=== PATIENT | female | born 1990 | race Caucasian/White ===

== ENCOUNTER → 2016-09-12 | Outpatient (REF) | payer OTHER ==
[~2016-09-12] MED LIST: ACET50TA PO; IBUP-1114 PO; VITAPRTA PO
== END ==
LOC: M LAB REF 13:40
PROVIDERS: ATTEND Advanced Practice Midwife
DX: Z12.4 Encounter for screening for malignant neoplasm of cervix (principal)

== ENCOUNTER → 2017-01-24 | Outpatient (CLI) | payer OTHER ==
[~2017-01-24] MED LIST changes: +CYTO1TAB PV; +IBUP-1022 PO; +METH0.2T53 PO; +ONDA4TAB6 PO; +OXYC1TAB23 PO
[2017-01-24 14:51] LABS: BASO % 0.1 % (0.0-1.0); EOS # 0.1 K/mm3 (0.0-0.50); EOS % 1.4 % (0.0-3.0); LARGE UNSTAINED CELL # 0.1 K/mm3 (0.0-0.4); LARGE UNSTAINED CELL % 1.6 % (0.0-4.0); LYMPH # 1.7 K/mm3 (1.5-6.5); LYMPH % 33.4 % (24.0-44.0); MEAN CORPUSCULAR HEMOGLOBIN 31.5 pg (27.0-33.0); MEAN CORPUSCULAR HGB CONC 33.6 g/dl (32.0-36.5); MEAN CORPUSCULAR VOLUME 93.7 fl (80.0-96.0); MONO # 0.2 K/mm3 (0.0-0.8); MONO % 4.7 % (0.0-5.0); NEUTROPHILS # 2.8 K/mm3 (1.8-7.7); NEUTROPHILS % 58.9 % (36.0-66.0); PLATELET COUNT, AUTOMATED 230 k/mm3 (150-450); RED CELL DISTRIBUTION WIDTH 12.7 % (11.5-14.5); WHITE BLOOD COUNT 4.8 K/mm3 (4.0-10.0)
[2017-01-25 09:59] LABS: HBsAg Prenatal NEGATIVE (NEGATIVE)
== END ==
LOC: M SMT 09:09
PROVIDERS: ATTEND Advanced Practice Midwife
DX: Z36 Encounter for antenatal screening of mother (principal); Z3A.00 Weeks of gestation of pregnancy not specified

== ENCOUNTER → 2017-02-28 | Day surgery (SDC) | payer OTHER ==
[~2017-02-28] VITALS: Ht 142.2 cm; Wt 57.2 kg
[~2017-02-28] MED LIST changes: +DOXYCYCLINE HYCLATE 100 MG TAB As Ordered ONE; +DOXYCYCLINE HYCLATE 100 MG TAB PO SCH; +DOXYCYCLINE HYCLATE 100 MG in D5W MINI-BAG PLUS 100 ML IV ONE; +DOXYCYCLINE HYCLATE 100 MG/10 ML VIAL As Ordered ONE; +KETOROLAC 60 MG/2 ML VIAL (J1885) As Ordered ONE; +LIDOCAINE 2% INJ 100 MG/5 ML SDV (FOR ANES.) As Ordered ONE; +LR 1,000 ML IV SCH; +MEPERIDINE INJ 25 MG/ML VIAL (J2175) As Ordered ONE; +METHYLERGONOVINE MALEATE 0.2 MG TAB PO SCH; +METHYLERGONOVINE MALEATE 0.2 MG/ML VIAL (J2210) As Ordered ONE; +METOCLOPRAMIDE INJ 10MG/2ML VIAL (J2765) IV PRN; +MIDAZOLAM INJ 2 MG/2 ML VIAL (J2250) As Ordered ONE; +ONDANSETRON 4MG/2ML VIAL (J2405) As Ordered ONE; +ONDANSETRON 4MG/2ML VIAL (J2405) IV PRN; +OXYTOCIN INJ 10 UNITS/ML VIAL (J2590) As Ordered ONE; +PERCOCET 5MG/325MG TAB PO PRN; +PROPOFOL 200 MG/20 ML VIAL As Ordered ONE; +SILVER NITRATE APPLICATOR As Ordered ONE; +dexameTHASONE 4 MG/ML 1ML VIAL (J1100) As Ordered ONE; +fentaNYL 100 MCG/2 ML INJECTION (J3010) IV PRN; +fentaNYL 250 MCG/5 ML INJECTION (J3010) As Ordered ONE
[2017-02-28 16:41] LABS: MEAN CORPUSCULAR HEMOGLOBIN 32.5 pg (27.0-33.0); MEAN CORPUSCULAR HGB CONC 34.9 g/dl (32.0-36.5); RED CELL DISTRIBUTION WIDTH 12.4 % (11.5-14.5); WHITE BLOOD COUNT 8.4 K/mm3 (4.0-10.0)
[2017-02-28] MEDS: MEPERIDINE INJ 25 MG/ML VIAL (J2175) IV PRN ×2 (18:08→18:15)
[2017-02-28 21:09] VITALS: BP 141/63
--- NOTE | 2017-03-02 07:32 | RO ---
DATE OF PROCEDURE: 02/28/2017 PREOPERATIVE DIAGNOSES: Missed /first trimester miscarriage/intrauterine embryonic demise. POSTOPERATIVE DIAGNOSES: Missed /first trimester miscarriage/ intrauterine embryonic demise. PROCEDURE PERFORMED: Suction dilation and curettage (D C). SURGEON: Byron Kwon DO CARTOGRAPHIC DRAFTER: None. FINDINGS: 10-12 week size uterus. Tissue removed grossly consistent with products of conception. ANESTHESIA: General via LMA. SPECIMENS TO PATHOLOGY: Intrauterine tissues/products of conception. ESTIMATED BLOOD LOSS: 600 mL. FLUIDS REPLACED: Approximately 1 liter lactated Ringer's. DRAINS: In-and-out catheter. 25 mL urine output prior to the start of the case. COMPLICATIONS: None. PREOPERATIVE ANTIBIOTICS: Doxycycline 100 mg IV times one. INDICATION: The patient is a 26-year-old G2 now P1-0-1-1. She was 11 weeks and 1 day by her EDC. She had a routine visit today. Unfortunately ultrasound showed no evidence of any cardiac activity. The crown rump length measured approximately 10 weeks in gestation. These findings were discussed with the patient during her appointment. The diagnosis of missed /intrauterine embryonic demise were reviewed. Treatment options were reviewed. The patient elected to undergo surgical management via suction dilation and curettage. PROCEDURE: The patient was counseled and consented on risks, benefits, indications, and alternatives of the procedure. Informed consent was obtained. She was taken to the operating room with an IV running and placed on the operating table in dorsal supine position. General anesthesia was administered and airway secured without any difficulty. She was placed in low lithotomy position. She was prepared and draped in normal sterile fashion. A time-out was performed per protocol. The bladder was drained with a sterile in-and-out catheter. Sterile speculum was placed into the vagina with good visualization of the cervix. The cervix was grasped at the anterior lip with a single-tooth tenaculum and downward traction was applied. The cervix was then sequentially dilated with Mckenzie dilators. The uterus sounded to approximately 10 cm. The size 9 Vacurette was placed transcervically into the intrauterine cavity and suction was applied. Tissue that was evacuated was grossly consistent with products of conception. Initially the patient had extremely brisk bleeding but in keeping the suction device in the intrauterine cavity, bleeding eventually decreased over the span of approximately 2-3 minutes. Upon removal of the Vacurette, minimal bleeding from the os was noted. Additional passes of the Vacurette were performed, and each pass with a small amount of tissue and blood return. Once the Vacurette was removed, minimal bleeding from the os was noted. Given the amount of brisk bleeding initially noted, the decision was made to give Methergine 0.2 mg IM to assist with hemostasis. She was also given 20 units of Pitocin in her IV fluids. The Vacurette was placed into the intrauterine cavity for an additional pass with minimal blood and tissue return, indicating complete evacuation of the tissue/products of conception. Upon removal of the Vacurette, minimal bleeding from the cervical os was noted. At this point, I decided to not proceed with the sharp curettage in an effort to not disrupt any raw vessels given the fact that I was confident that the products of conception had been completely removed. The patient was observed for a short period of time. Minimal bleeding from the cervical os was noted. Even with fundal pressure and bimanual massage, minimal bleeding was noted. The single-tooth tenaculum and then removed. The tenaculum sites were cauterized with silver nitrate. Sponge, lap, needle and instrument counts were correct. The patient tolerated the entire procedure well. She was transferred to the postanesthesia care unit in good and stable condition. Minimal vaginal bleeding was noted. LEIGHA
== END | disposition home or self-care (01) ==
LOC: M SDC 14:25
PROVIDERS: ATTEND Obstetrics & Gynecology
DX: O02.1 Missed abortion (principal)
CPT/HCPCS: 36415; 59820; 85027; 86850; 86900; 86901; 88305; J1100; J1885; J2175; J2210; J2250; J2405; J2590; J3010

== ENCOUNTER → 2017-03-15 | Outpatient (CLI) | payer OTHER ==
[~2017-03-15] MED LIST changes: -DOXYCYCLINE HYCLATE 100 MG TAB As Ordered ONE; -DOXYCYCLINE HYCLATE 100 MG TAB PO SCH; -DOXYCYCLINE HYCLATE 100 MG in D5W MINI-BAG PLUS 100 ML IV ONE; -DOXYCYCLINE HYCLATE 100 MG/10 ML VIAL As Ordered ONE; -KETOROLAC 60 MG/2 ML VIAL (J1885) As Ordered ONE; -LIDOCAINE 2% INJ 100 MG/5 ML SDV (FOR ANES.) As Ordered ONE; -LR 1,000 ML IV SCH; -MEPERIDINE INJ 25 MG/ML VIAL (J2175) As Ordered ONE; -METHYLERGONOVINE MALEATE 0.2 MG TAB PO SCH; -METHYLERGONOVINE MALEATE 0.2 MG/ML VIAL (J2210) As Ordered ONE; -METOCLOPRAMIDE INJ 10MG/2ML VIAL (J2765) IV PRN; -MIDAZOLAM INJ 2 MG/2 ML VIAL (J2250) As Ordered ONE; -ONDANSETRON 4MG/2ML VIAL (J2405) As Ordered ONE; -ONDANSETRON 4MG/2ML VIAL (J2405) IV PRN; -OXYTOCIN INJ 10 UNITS/ML VIAL (J2590) As Ordered ONE; -PERCOCET 5MG/325MG TAB PO PRN; -PROPOFOL 200 MG/20 ML VIAL As Ordered ONE; -SILVER NITRATE APPLICATOR As Ordered ONE; -dexameTHASONE 4 MG/ML 1ML VIAL (J1100) As Ordered ONE; -fentaNYL 100 MCG/2 ML INJECTION (J3010) IV PRN; -fentaNYL 250 MCG/5 ML INJECTION (J3010) As Ordered ONE
[2017-03-15 13:28] LABS: MEAN CORPUSCULAR HEMOGLOBIN 31.6 pg (27.0-33.0); MEAN CORPUSCULAR HGB CONC 33.3 g/dl (32.0-36.5); MEAN CORPUSCULAR VOLUME 94.8 fl (80.0-96.0); RED CELL DISTRIBUTION WIDTH 12.4 % (11.5-14.5); WHITE BLOOD COUNT 4.4 K/mm3 (4.0-10.0)
== END ==
LOC: M SMT 11:05
PROVIDERS: ATTEND Obstetrics & Gynecology
DX: O02.1 Missed abortion (principal)

== ENCOUNTER → 2017-04-13 | Outpatient (CLI) | payer OTHER | LOC: M SMT 10:52 | PROVIDERS: ATTEND Obstetrics & Gynecology | DX: O02.1 Missed abortion (principal); Z3A.00 Weeks of gestation of pregnancy not specified ==

== ENCOUNTER → 2017-08-29 | Outpatient (CLI) | payer OTHER ==
[2017-08-29 13:29] LABS: BASO % 0.6 % (0.0-1.0); EOS % 0.6 % (0.0-3.0); HEMATOCRIT 35.6 % (36.0-47.0); HEMOGLOBIN 12.1 g/dl (12.0-16.0); IMMATURE GRANULOCYTE % 0.2 % (0-0); MEAN CORPUSCULAR HEMOGLOBIN 30.6 pg (27.0-33.0); MEAN CORPUSCULAR VOLUME 89.9 fl (80.0-96.0); MONO # 0.4 10^3/uL (0.0-0.8); MONO % 7.8 % (0.0-5.0); NEUTROPHILS # 2.5 10^3/uL (1.8-7.7); NEUTROPHILS % 50.8 % (36.0-66.0); PLATELET COUNT, AUTOMATED 214 10^3/uL (150-450); RED BLOOD COUNT 3.96 10^6/uL (4.00-5.40); RED CELL DISTRIBUTION WIDTH 13.8 % (11.5-14.5)
[2017-08-29 15:05] LABS: CHLAMYDIA DNA AMPLIFICATION NEGATIVE (NEGATIVE); GC DNA AMPLIFICATION NEGATIVE (NEGATIVE)
[2017-08-30 11:21] LABS: RUBELLA IgG QUALITATIVE IMMUNE (IMMUNE)
[2017-08-30 11:41] LABS: HBsAg Prenatal NEGATIVE (NEGATIVE)
[2017-08-30 11:51] LABS: HEPATITIS C VIRUS ABY INDEX < 0.0 INDEX (<0.8)
[2017-08-30 11:52] LABS: HIV 1&2 SCREEN CENTAUR NEGATIVE (NEGATIVE)
== END ==
LOC: M SMT 10:50
DX: Z34.81 Encounter for supervision of other normal pregnancy, first trimester (principal)
CPT/HCPCS: 86762

== ENCOUNTER → 2017-10-31 | Outpatient (CLI) | payer OTHER | LOC: M RAD 09:29 | DX: Z36.9 Encounter for antenatal screening, unspecified (principal); Z3A.18 18 weeks gestation of pregnancy | CPT/HCPCS: 76811 ==

== ENCOUNTER → 2017-11-22 | Outpatient (CLI) | payer OTHER | LOC: M SMT 09:36 | DX: Z36.0 Encounter for antenatal screening for chromosomal anomalies (principal) ==

== ENCOUNTER → 2017-11-23 | Outpatient (CLI) | payer OTHER | LOC: M RAD 17:31 | DX: Z36.89 Encounter for other specified antenatal screening (principal); Z3A.22 22 weeks gestation of pregnancy | CPT/HCPCS: 76816 ==

== ENCOUNTER → 2017-12-14 | Outpatient (CLI) | payer OTHER ==
[2017-12-14 13:26] LABS: BASO % 0.6 % (0.0-1.0); EOS # 0.1 10^3/uL (0.0-0.50); EOS % 0.7 % (0.0-3.0); HEMATOCRIT 33.5 % (36.0-47.0); HEMOGLOBIN 11.5 g/dl (12.0-15.5); IMMATURE GRANULOCYTE % 0.3 % (0-3.0); LYMPH # 1.5 10^3/uL (1.5-6.5); LYMPH % 21.3 % (24.0-44.0); MEAN CORPUSCULAR HEMOGLOBIN 33.1 pg (27.0-33.0); MEAN CORPUSCULAR HGB CONC 34.3 g/dl (32.0-36.5); MEAN CORPUSCULAR VOLUME 96.5 fl (80.0-96.0); MONO # 0.5 10^3/uL (0.0-0.8); MONO % 6.5 % (0.0-5.0); NEUTROPHILS # 4.9 10^3/uL (1.8-7.7); NEUTROPHILS % 70.6 % (36.0-66.0); PLATELET COUNT, AUTOMATED 266 10^3/uL (150-450); RED BLOOD COUNT 3.47 10^6/uL (4.00-5.40); RED CELL DISTRIBUTION WIDTH 12.7 % (11.5-14.5); WHITE BLOOD COUNT 6.9 10^3/uL (4.0-10.0)
[2017-12-14 14:11] LABS: GLUCOSE CHALLENGE TEST 1 HOUR 55 MG/DL (LESS THAN 140)
== END ==
LOC: M SMT 10:10
DX: Z34.82 Encounter for supervision of other normal pregnancy, second trimester (principal); Z3A.00 Weeks of gestation of pregnancy not specified